=== PATIENT | female | born 1985 | race Caucasian/White ===

== ENCOUNTER 2017-01-25 02:35 | Emergency (ER) | payer OTHER ==
[~2017-01-25] VITALS: Ht 162.6 cm; Wt 70.0 kg
[~2017-01-25 02:35] MED LIST: ACYC800T PO; METR-1 PO; MIREIUD I-UTERINE
[2017-01-25 02:37] VITALS: BP 123/77; PULSE 93; RESP 16; TEMP 97.7; O2SAT 98
[2017-01-25] MEDS ORDERED: SODIUM CHLOR 0.9% 1000 ML INJ 1,000 ML IV ONE (04:30)
[2017-01-25] MEDS ORDERED: ONDANSETRON HCL 4 MG/2 ML VIAL IV PUSH ONE (04:30)
[2017-01-25] MEDS ORDERED: SODIUM CHLORIDE 0.9% FLUSH 10 ML FLUSH IV FLUSH PRN (04:30)
[2017-01-25] MEDS ORDERED: MORPHINE SULFATE 4 MG/ML INJ IV PUSH ONE ×2 (04:30→05:15)
--- NOTE | 2017-01-25 04:42 | PD ---
HPI Chief Complaint: Abdominal Pain Time Seen by Provider: 04:21 Travel History International Travel<30 days: No Contact w/Intl Traveler<30days: No Traveled to known affect area: No History of Present Illness HPI 31yo F with no significant PMH presents to the ED with c/o right lower abdominal pain 2-3 days ago. Associated with nausea but no vomiting. Denies any fever, chest pain, sob, dysuria, hematuria, vaginal bleeding or discharge. PSH include cholecystectomy. No exacerbation or alleviating factor. Pain is sharp and intermittent. PFSH Past Medical History Diminished Hearing: No Integumentary: Yes ("COLD SORES" PER PT) Immunizations Current: Yes Migraines: Yes Tetanus Vaccination: < 5 Years Influenza Vaccination: Yes ?: Not LMP: IUD : 2 Para: 2 Miscarriage: 0 : 0 Past Surgical History Cholecystectomy: Yes Oral Surgery: Yes (WISDOM TEETH REMOVED) Social History Alcohol Use: Yes (occasional) Tobacco Use: No Substance Use: No Allergies-Medications (Allergen,Severity, Reaction): Coded Allergies: No Known Allergies (Unverified , 03/21/16) Reported Meds & Prescriptions Reported Meds & Active Scripts Active Mirena (Levonorgestrel (Iud)) 20 Mcg/24 Hr Iud 52 Mg I-UTERINE ONCE Review of Systems Except as stated in HPI: all other systems reviewed are Neg Physical Exam Narrative GENERAL: 31yo F in mild distress. SKIN: Focused skin assessment warm/dry. HEAD: Atraumatic. Normocephalic. CARDIOVASCULAR: Regular rate and rhythm. No murmur appreciated. RESPIRATORY: No accessory muscle use. Clear to auscultation. Breath sounds equal bilaterally. GASTROINTESTINAL: Abdomen soft, +TTP RLQ. No rebound tenderness or guarding. BACK: No CVA tenderness. MUSCULOSKELETAL: No obvious deformities. No clubbing. No cyanosis. No edema. NEUROLOGICAL: Awake and alert. No obvious cranial nerve deficits. Motor grossly within normal limits. Normal speech. PSYCHIATRIC: Appropriate mood and affect; insight and judgment normal. Data Data Last Documented VS Vital Signs Date Time Temp Pulse Resp B/P (MAP) Pulse Ox O2 Delivery O2 Flow Rate FiO2 01/25/17 05:04 94 16 132/89 (103) 99 01/25/17 02:37 97.7 Room Air Orders Orders Complete Blood Count With Diff (01/25/17 04:29) Comprehensive Metabolic Panel (01/25/17 04:29) Lipase (01/25/17 04:29) Prothrombin Time / Inr (Pt) (01/25/17 04:29) Act Partial Throm Time (Ptt) (01/25/17 04:29) Urinalysis - C+S If Indicated (01/25/17 04:29) Ct Abd/Pel W Iv Contrast(Rout) (01/25/17 04:29) Iv Access Insert/Monitor (01/25/17 04:29) Ecg Monitoring (01/25/17 04:29) Oximetry (01/25/17 04:29) Sodium Chloride 0.9% Flush (Ns Flush) (01/25/17 04:30) Ed Urine Pregnancytest Poc (01/25/17 04:29) Ondansetron Inj (Zofran Inj) (01/25/17 04:30) Morphine Inj (Morphine Inj) (01/25/17 04:30) Sodium Chlor 0.9% 1000 Ml Inj (Ns 1000 M (01/25/17 04:30) Morphine Inj (Morphine Inj) (01/25/17 05:15) Iohexol 350 Inj (Omnipaque 350 Inj) (01/25/17 05:44) Ketorolac Inj (Toradol Inj) (01/25/17 07:00) Hydromorphone Pf Inj (Dilaudid Pf Inj) (01/25/17 07:00) Labs Laboratory Tests Test 01/25/17 04:30 White Blood Count 5.1 TH/MM3 Red Blood Count 3.59 MIL/MM3 Hemoglobin 11.7 GM/DL Hematocrit 34.7 % Mean Corpuscular Volume 96.6 FL Mean Corpuscular Hemoglobin 32.5 PG Mean Corpuscular Hemoglobin Concent 33.6 % Red Cell Distribution Width 12.4 % Platelet Count 180 TH/MM3 Mean Platelet Volume 9.3 FL Neutrophils (%) (Auto) 58.5 % Lymphocytes (%) (Auto) 29.5 % Monocytes (%) (Auto) 7.3 % Eosinophils (%) (Auto) 4.2 % Basophils (%) (Auto) 0.5 % Neutrophils # (Auto) 3.0 TH/MM3 Lymphocytes # (Auto) 1.5 TH/MM3 Monocytes # (Auto) 0.4 TH/MM3 Eosinophils # (Auto) 0.2 TH/MM3 Basophils # (Auto) 0.0 TH/MM3 CBC Comment DIFF FINAL Differential Comment Prothrombin Time 10.4 SEC Prothromb Time International Ratio 0.9 RATIO Activated Partial Thromboplast Time 26.2 SEC Urine Color LIGHT-YELLOW Urine Turbidity CLEAR Urine pH 6.0 Urine Specific [place] 1.003 Urine Protein NEG mg/dL Urine Glucose (UA) NEG mg/dL Urine Ketones NEG mg/dL Urine Occult Blood NEG Urine Nitrite NEG Urine Bilirubin NEG Urine Urobilinogen LESS THAN 2.0 MG/DL Urine Leukocyte Esterase NEG Urine RBC LESS THAN 1 /hpf Urine WBC 1 /hpf Urine Squamous Epithelial Cells <1 /hpf Microscopic Urinalysis Comment CULT NOT INDICATED Blood Urea Nitrogen 12 MG/DL Creatinine 0.66 MG/DL Random Glucose 87 MG/DL Total Protein 7.4 GM/DL Albumin 4.3 GM/DL Calcium Level 8.5 MG/DL Alkaline Phosphatase 59 U/L Aspartate Amino Transf (AST/SGOT) 45 U/L Alanine Aminotransferase (ALT/SGPT) 31 U/L Total Bilirubin 0.3 MG/DL Sodium Level 141 MEQ/L Potassium Level 3.9 MEQ/L Chloride Level 109 MEQ/L Carbon Dioxide Level 26.2 MEQ/L Anion Gap 6 MEQ/L Estimat Glomerular Filtration Rate 104 ML/MIN Lipase 170 U/L [facility] Medical Decision Making Medical Screen Exam Complete: Yes Emergency Medical Condition: Yes Differential Diagnosis Acute appendicitis vs. pyelonephritis vs. colitis Narrative Course 31yo F with lower abdominal pain today. Labs reviewed, no leukocytosis. CMP unremarkable. Lipase normal. UA showed no leukocyte. Urine negative. CT a/p showed nonobstructing 6mm left renal stone. IUD in place. I discussed with Dr. Butts radiologist and he said he does not visualize the appendix but do not see inflammatory changes in right lower abdomen. Pt given pain medication and zofran. Pt tolerating PO and pain improved. Return precautions given. Diagnosis Primary Impression: Renal calculus, left Referrals: Brown Hou DO as needed Nonobstructing 6mm left renal stone Patient Instructions: General Instructions Departure Forms: Tests/Procedures Additional Instructions: Please follow up with urologist if pain persists. Return to the ED if symptoms worsen. Med/Other Pt SpecificInfo: Prescription(s) given Scripts Oxycodone-Acetaminophen (Percocet) 5-325 mg Tab 1 TAB PO Q6H Y for PAIN, #7 TAB 0 Refills Prov: Chloe Balderas DO 01/25/17 Disposition: 01 DISCHARGE HOME Condition: Stable Chloe Balderas DO Jan 25, 2017 04:42
[2017-01-25 04:46] LABS: BLOOD, URINE NEG (NEG); GLUCOSE,URINE NEG (NEG); KETONE, URINE NEG (NEG); NITRITE,URINE NEG (NEG); SQUAMOUS EPITHELIAL CELL URINE <1 /hpf (0-5); URINE COLOR LIGHT-YELLOW (YELLW/STRAW)
[2017-01-25 04:52] LABS: BASOPHIL % 0.5 % (0.0-2.0); EOSINOPHIL # 0.2 TH/MM3 (0-0.4); EOSINOPHIL % 4.2 % (0.0-4.0); HEMATOCRIT 34.7 % (35.0-46.0); HEMO FLAGS DIFF FINAL; LYMPH % 29.5 % (9.0-44.0); LYMPHOCYTE # 1.5 TH/MM3 (1.0-4.8); MEAN CELL VOLUME 96.6 FL (80.0-100.0); MEAN CORPUSCULAR HEMOGLOBIN 32.5 PG (27.0-34.0); MEAN CORPUSCULAR HGB CONC 33.6 % (32.0-36.0); MONO % 7.3 % (0.0-8.0); NEUT % 58.5 % (16.0-70.0); PLATELET COUNT 180 TH/MM3 (150-450); RED BLOOD COUNT 3.59 MIL/MM3 (4.00-5.30); RED CELL DISTRIBUTION WIDTH 12.4 % (11.6-17.2); WHITE BLOOD COUNT 5.1 TH/MM3 (4.0-11.0)
[2017-01-25 04:57] LABS: COMMENT (UR) CULT NOT INDICATED; CULTURE IF INDICATED CULT NOT INDICATED
[2017-01-25 05:02] LABS: APTT (PATIENT) 26.2 SEC (24.3-30.1); INTERNATIONAL NORMALIZED RATIO 0.9 RATIO; PROTHROMBIN TIME - PATIENT 10.4 SEC (9.8-11.6)
[2017-01-25 05:04] VITALS: BP 132/89; PULSE 94; RESP 16; O2SAT 99
[2017-01-25 05:12] LABS: ALT (GPT) 31 U/L (10-53); ANION GAP 6 MEQ/L (5-15); AST (GOT) 45 U/L (15-37); BICARBONATE 26.2 MEQ/L (21.0-32.0); BLOOD UREA NITROGEN 12 MG/DL (7-18); CHLORIDE 109 MEQ/L (98-107); GLOMERULAR FILTRATION RATE 104 ML/MIN (>89); POTASSIUM 3.9 MEQ/L (3.5-5.1); SODIUM (NA) 141 MEQ/L (136-145)
[2017-01-25 05:15] LABS: ALKALINE PHOSPHATASE 59 U/L (45-117); TOTAL BILIRUBIN ADULT 0.3 MG/DL (0.2-1.0)
[2017-01-25] MEDS ORDERED: IOHEXOL 350 MG/ML 10 ML VIAL (for RAD DIAG) IVCONTRAST ONE (05:44)
--- NOTE | 2017-01-25 06:02 | RADRPT ---
EXAM DATE/TIME: 01/25/2017 05:42 [facility] COMPARISON: No previous studies available for comparison. INDICATIONS : Diffuse abdominal pain. IV CONTRAST: 95 cc Omnipaque 350 (iohexol) IV ORAL CONTRAST: No oral contrast ingested. RADIATION DOSE: 6.79 CTDIvol (mGy) MEDICAL HISTORY : None SURGICAL HISTORY : Cholecystectomy. ENCOUNTER: Initial ACUITY: 1 day PAIN SCALE: 8/10 LOCATION: Bilateral abdomen TECHNIQUE: Volumetric scanning of the abdomen and pelvis was performed. Using automated exposure control and ad justment of the mA and/or kV according to patient size, radiation dose was kept as low as reasonably achievable to obtain optimal diagnostic quality images. DICOM format image data is available electro nically for review and comparison. FINDINGS: LOWER LUNGS: The visualized lower lungs are clear. LIVER: The patient is status post cholecystectomy. There is dilatation of the intra-and extrahepatic biliary ducts likely reflecting a reservoir phenomenon. SPLEEN: Normal size without lesion. PANCREAS: Within normal limits. KIDNEYS: There is a 6 mm nonobstructing stone seen in the inferior left collecting system. No renal mass or hy dronephrosis is seen. ADRENAL GLANDS: Within normal limits. VASCULAR: There is no aortic aneurysm. BOWEL/MESENTERY: The stomach, small bowel, and colon demonstrate no acute abnormality. There is no free intraperitone al air or fluid. ABDOMINAL WALL: Within normal limits. RETROPERITONEUM: There is no lymphadenopathy. BLADDER: No wall thickening or mass. REPRODUCTIVE: The uterus is retroverted. There is a T-shaped IUD in place. INGUINAL: There is no lymphadenopathy or hernia. MUSCULOSKELETAL: Within normal limits for patient age. CONCLUSION: 1. Nonobstructing 6 mm left renal stone. 2. IUD in a retroverted uterus. 3. Biliary duct dilatation likely reflecting a reservoir phenomenon following cholecystectomy. 4. An acute abnormality is not seen. Ignacio Butts MD on January 25, 2017 at 5:58 Board Certified Radiologist. This report was verified electronically.
[2017-01-25] MEDS ORDERED: HYDROmorphone HCL PF 1 MG/ML VIAL IV PUSH ONE (07:00)
[2017-01-25] MEDS ORDERED: KETOROLAC TROMETHAMINE 30 MG/ML (IVP) VIAL IV PUSH ONE (07:00)
[2017-01-25] MEDS ORDERED: PERC5TAB12 PO (07:31)
[2017-01-25 08:04] VITALS: RESP 20
== END 2017-01-25 08:07 | disposition home or self-care (01) ==
LOC: NEPE 02:35
DX: N20.0 Calculus of kidney (principal)
CPT/HCPCS: 74177; 80053; 81001; 83690; 84703; 85025; 85610; 85730; 96361; 96374; 96375; 96376; 99285; J1170; J1885; J2270; J2405; J7030; Q9967